=== PATIENT | male | born 1935 | race Caucasian/White ===

== ENCOUNTER 2018-01-05 12:32 | Emergency (ER) | payer OTHER ==
[~2018-01-05] VITALS: Ht 180.3 cm; Wt 113.4 kg
[~2018-01-05 12:32] MED LIST: CODACE30 PO; LISINOPRIL PO; LOVASTATIN PO; NAPR500 PO; NEBI5 PO; TRIHYD5075 PO
== END 2018-01-05 14:49 | disposition home or self-care (01) ==
LOC: ER 12:32
DX: R20.2 Paresthesia of skin (principal); I10 Essential (primary) hypertension; Z79.899 Other long term (current) drug therapy
CPT/HCPCS: 99281

== ENCOUNTER → 2018-02-28 | Outpatient (CLI) | payer OTHER | END | disposition home or self-care (01) | LOC: LAB SHORT 08:07 → PLD 08:07 | DX: D22.39 Melanocytic nevi of other parts of face (principal); L81.4 Other melanin hyperpigmentation; L57.8 Other skin changes due to chronic exposure to nonionizing radiation | CPT/HCPCS: 88305; 88312 ==

== ENCOUNTER 2018-12-22 10:22 | Emergency (ER) | payer OTHER ==
[~2018-12-22] VITALS: Ht 180.3 cm; Wt 99.8 kg
== END 2018-12-22 11:47 | disposition home or self-care (01) ==
LOC: ER 10:22
DX: S60.211A Contusion of right wrist, initial encounter (principal); M19.90 Unspecified osteoarthritis, unspecified site; I10 Essential (primary) hypertension; Z79.899 Other long term (current) drug therapy; W01.0XXA Fall on same level from slipping, tripping and stumbling without subsequent striking against object, initial encounter
CPT/HCPCS: 29125; 73110; 99283-25

== ENCOUNTER → 2019-06-03 | Outpatient (CLI) | payer OTHER ==
[2019-06-03 13:19] LABS: BASOPHILS ABSOLUTE AUTO 0.07 K/mm3 (0.00-0.23); BASOPHILS PERCENT AUTO 1 % (0-2); EOSINOPHILS ABSOLUTE AUTO 0.13 K/mm3 (0.00-0.68); EOSINOPHILS PERCENT AUTO 2 % (0-6); Hematocrit 47.3 % (37.0-53.0); Hemoglobin 15.7 g/dL (13.5-17.5); IMMATURE GRAN ABSOLUTE AUTO 0.02 K/mm3 (0.00-0.10); IMMATURE GRAN PERCENT AUTO 0 % (0-1); LYMPHOCYTES ABSOLUTE AUTO 1.49 K/mm3 (0.84-5.20); LYMPHOCYTES PERCENT AUTO 20 % (21-46); MONOCYTES PERCENT AUTO 8 % (4-13); Mean Corpuscular HGB 28.3 pg (26.0-34.0); Mean Corpuscular HGB Conc 33.2 g/dL (31.5-36.5); Mean Corpuscular Volume 85 fL (80-100); NEUTROPHILS ABSOLUTE AUTO 5.14 K/mm3 (1.96-9.15); NEUTROPHILS PERCENT AUTO 69 % (41-73); Platelet Count 223 K/mm3 (150-400); RDW Coefficient Variation 13.2 % (11.7-14.2); RDW Standard Deviation 40.7 fL (35.1-46.3); Red Blood Cell Count 5.55 M/mm3 (4.30-5.90); White Blood Cell Count 7.45 K/mm3 (4.00-11.30)
[2019-06-03 13:32] LABS: Alanine Aminotransfer (ALT/SGP 21 U/L (12-78); Albumin, Blood 3.8 g/dL (3.4-5.0); Albumin/Globulin Ratio 1.1 (0.8-1.8); Alk Phos 103 U/L (40-126); Anion Gap 6 mmol/L (6-16); Aspartate Aminotrans (AST/SGOT 24 U/L (12-37); Bilirubin, Total 0.5 mg/dL (0.1-1.0); Blood Urea Nitrogen 16 mg/dL (8-24); Bun/Creatinine Ratio 14.2 (12.0-20.0); CO2, Blood 31 mmol/L (21-32); Calcium, Blood 8.8 mg/dL (8.5-10.1); Chloride, Blood 104 mmol/L (98-108); Creatinine, Blood 1.13 mg/dL (0.60-1.20); Globulin, Blood 3.5 g/dL (2.2-4.0); Glomerular Filtration Rate >60 (60-); Glucose, Blood 97 mg/dL (70-99); Potassium, Blood 3.7 mmol/L (3.5-5.5); Sodium, Blood 141 mmol/L (136-145); Total Protein, Blood 7.3 g/dL (6.4-8.2)
== END | disposition home or self-care (01) ==
LOC: LAB EV 13:14 → LAB SHORT 13:14
PROVIDERS: Physician Assistant
DX: R10.9 Unspecified abdominal pain (principal)
CPT/HCPCS: 80053; 83690; 85025; 85379

== ENCOUNTER 2021-05-24 07:26 | Day surgery (SDC) | payer OTHER ==
[~2021-05-24] VITALS: Ht 177.8 cm; Wt 100.2 kg
[~2021-05-24 07:26] MED LIST changes: +AMLO10; +HYDCHL25; +METO100ER; +NEBI5; +TAMS.4ER; +ZESTRIL40 M1
== END 2021-05-24 09:16 | disposition home or self-care (01) ==
LOC: ORSCSDS 07:26
PROVIDERS: Orthopaedic Surgery
PROC: 01N50ZZ Release Median Nerve, Open Approach (ICD-10-PCS; principal; 2021-05-24 08:30)
DX: G56.01 Carpal tunnel syndrome, right upper limb (principal); I10 Essential (primary) hypertension; E66.9 Obesity, unspecified; Z68.31 Body mass index [BMI] 31.0-31.9, adult; Z79.899 Other long term (current) drug therapy
CPT/HCPCS: J2704; J7120

== ENCOUNTER 2022-06-25 11:15 | Emergency (ER) | payer OTHER ==
[~2022-06-25] VITALS: Ht 180.3 cm; Wt 106.6 kg
== END 2022-06-25 13:37 | disposition home or self-care (01) ==
LOC: ER 11:15
DX: S92.901A Unspecified fracture of right foot, initial encounter for closed fracture (principal); I10 Essential (primary) hypertension; X58.XXXA Exposure to other specified factors, initial encounter
CPT/HCPCS: 73630

== ENCOUNTER → 2022-08-23 | Outpatient (CLI) | payer OTHER ==
[2022-08-23 12:29] LABS: BASOPHILS ABSOLUTE AUTO 0.03 K/mm3 (0.00-0.23); BASOPHILS PERCENT AUTO 1 % (0-2); EOSINOPHILS PERCENT AUTO 2 % (0-6); Hematocrit 40.1 % (37.0-53.0); Hemoglobin 12.9 g/dL (13.5-17.5); IMMATURE GRAN ABSOLUTE AUTO 0.03 K/mm3 (0.00-0.10); IMMATURE GRAN PERCENT AUTO 1 % (0-1); LYMPHOCYTES ABSOLUTE AUTO 1.01 K/mm3 (0.84-5.20); LYMPHOCYTES PERCENT AUTO 16 % (21-46); MONOCYTES ABSOLUTE AUTO 0.56 K/mm3 (0.16-1.47); MONOCYTES PERCENT AUTO 9 % (4-13); Mean Corpuscular HGB 27.5 pg (26.0-34.0); Mean Corpuscular HGB Conc 32.2 g/dL (31.5-36.5); Mean Corpuscular Volume 86 fL (80-100); Mean Platelet Volume 10.2 fL (9.1-12.4); NEUTROPHILS ABSOLUTE AUTO 4.76 K/mm3 (1.96-9.15); NEUTROPHILS PERCENT AUTO 73 % (41-73); Platelet Count 261 K/mm3 (150-400); RDW Coefficient Variation 14.5 % (11.7-14.2); RDW Standard Deviation 44.9 fL (35.1-46.3); Red Blood Cell Count 4.69 M/mm3 (4.30-5.90); White Blood Cell Count 6.49 K/mm3 (4.00-11.30)
[2022-08-23 12:41] LABS: Albumin, Blood 2.6 g/dL (3.4-5.0); Albumin/Globulin Ratio 0.7 (0.8-1.8); Bilirubin, Total 0.4 mg/dL (0.1-1.0); Bun/Creatinine Ratio 12.4 (12.0-20.0); Calcium, Blood 8.8 mg/dL (8.5-10.1); Creatinine, Blood 1.13 mg/dL (0.60-1.20); Globulin, Blood 3.9 g/dL (2.2-4.0); Potassium, Blood 4.1 mmol/L (3.5-5.5); Total Protein, Blood 6.5 g/dL (6.4-8.2)
== END | disposition home or self-care (01) ==
LOC: LAB SHORT 12:25
PROVIDERS: Chiropractor
DX: R60.0 Localized edema (principal); R06.09 Other forms of dyspnea
CPT/HCPCS: 80053; 83880; 84484; 85025

== ENCOUNTER 2022-08-24 13:00 | Inpatient (IN) | payer OTHER ==
[~2022-08-24] VITALS: Ht 180.3 cm; Wt 101.0 kg
[2022-08-24 13:38] LABS: BASOPHILS ABSOLUTE AUTO 0.04 K/mm3 (0.00-0.23); BASOPHILS PERCENT AUTO 1 % (0-2); EOSINOPHILS ABSOLUTE AUTO 0.11 K/mm3 (0.00-0.68); EOSINOPHILS PERCENT AUTO 2 % (0-6); Hematocrit 41.7 % (37.0-53.0); IMMATURE GRAN ABSOLUTE AUTO 0.02 K/mm3 (0.00-0.10); IMMATURE GRAN PERCENT AUTO 0 % (0-1); LYMPHOCYTES ABSOLUTE AUTO 0.94 K/mm3 (0.84-5.20); LYMPHOCYTES PERCENT AUTO 16 % (21-46); MONOCYTES ABSOLUTE AUTO 0.61 K/mm3 (0.16-1.47); MONOCYTES PERCENT AUTO 10 % (4-13); Mean Corpuscular HGB 26.7 pg (26.0-34.0); Mean Corpuscular HGB Conc 31.2 g/dL (31.5-36.5); Mean Corpuscular Volume 86 fL (80-100); Mean Platelet Volume 10.1 fL (9.1-12.4); NEUTROPHILS ABSOLUTE AUTO 4.36 K/mm3 (1.96-9.15); NEUTROPHILS PERCENT AUTO 72 % (41-73); Platelet Count 335 K/mm3 (150-400); RDW Coefficient Variation 14.2 % (11.7-14.2); RDW Standard Deviation 44.8 fL (35.1-46.3); Red Blood Cell Count 4.86 M/mm3 (4.30-5.90); White Blood Cell Count 6.08 K/mm3 (4.00-11.30)
[2022-08-24 14:03] LABS: Albumin, Blood 2.7 g/dL (3.4-5.0); Albumin/Globulin Ratio 0.7 (0.8-1.8); Bilirubin, Total 0.7 mg/dL (0.1-1.0); Bun/Creatinine Ratio 14.7 (12.0-20.0); Calcium, Blood 9.1 mg/dL (8.5-10.1); Creatinine, Blood 1.16 mg/dL (0.60-1.20); Globulin, Blood 3.9 g/dL (2.2-4.0); Potassium, Blood 3.9 mmol/L (3.5-5.5); Total Protein, Blood 6.6 g/dL (6.4-8.2)
--- NOTE | 2022-08-24 16:55 | NUR ---
SHIFT SUMMARY PATIENT IS A RECENT DIRECT ADMIT FROM [facility]. PATIENT IS ALERT AND ORIENTED. PATIENT IS IND IN ROOM. PATIENT HAS BEEN ADMITTED FOR A NEW DIAGNOSIS OF ACUTE CHF. PATIENT HAS PLUS 2 EDEMA IN LOWER EXTREMITIES. PATIENT IS RECEIVING LASIX TO GET FLUIDS OFF. PATIENT HAD NOT COMPLAINED OF PAIN, NAUSEA, SOB OR VOMITTING THIS SHIFT. BED IN LOCKED AND LOWEST POSITION. CALL LIGHT IN PLACE. WILL MONITOR UNTIL SHIFT CHANGE.
--- NOTE | 2022-08-25 03:03 | NUR ---
Patient resting in bed, no significant events overnight.
[2022-08-25 05:07] LABS: BASOPHILS ABSOLUTE AUTO 0.04 K/mm3 (0.00-0.23); BASOPHILS PERCENT AUTO 1 % (0-2); EOSINOPHILS ABSOLUTE AUTO 0.13 K/mm3 (0.00-0.68); EOSINOPHILS PERCENT AUTO 3 % (0-6); Hematocrit 37.9 % (37.0-53.0); Hemoglobin 11.8 g/dL (13.5-17.5); IMMATURE GRAN ABSOLUTE AUTO 0.02 K/mm3 (0.00-0.10); IMMATURE GRAN PERCENT AUTO 0 % (0-1); LYMPHOCYTES ABSOLUTE AUTO 0.94 K/mm3 (0.84-5.20); LYMPHOCYTES PERCENT AUTO 18 % (21-46); MONOCYTES ABSOLUTE AUTO 0.51 K/mm3 (0.16-1.47); MONOCYTES PERCENT AUTO 10 % (4-13); Mean Corpuscular HGB 26.6 pg (26.0-34.0); Mean Corpuscular HGB Conc 31.1 g/dL (31.5-36.5); Mean Corpuscular Volume 86 fL (80-100); Mean Platelet Volume 10.5 fL (9.1-12.4); NEUTROPHILS ABSOLUTE AUTO 3.46 K/mm3 (1.96-9.15); NEUTROPHILS PERCENT AUTO 68 % (41-73); Platelet Count 351 K/mm3 (150-400); RDW Coefficient Variation 14.3 % (11.7-14.2); RDW Standard Deviation 44.6 fL (35.1-46.3); Red Blood Cell Count 4.43 M/mm3 (4.30-5.90)
[2022-08-25 05:47] LABS: Alanine Aminotransfer (ALT/SGP 20 U/L (12-78); Albumin, Blood 2.3 g/dL (3.4-5.0); Albumin/Globulin Ratio 0.7 (0.8-1.8); Alk Phos 75 U/L (50-136); Anion Gap 2 mmol/L (6-16); Aspartate Aminotrans (AST/SGOT 12 U/L (12-37); Bilirubin, Total 0.4 mg/dL (0.1-1.0); Blood Urea Nitrogen 18 mg/dL (8-24); Bun/Creatinine Ratio 16.2 (12.0-20.0); CHOL/HDL RATIO 3.6; CO2, Blood 30 mmol/L (21-32); Calcium, Blood 8.6 mg/dL (8.5-10.1); Chloride, Blood 108 mmol/L (98-108); Cholesterol 131 mg/dL (50-200); Creatinine, Blood 1.11 mg/dL (0.60-1.20); Globulin, Blood 3.4 g/dL (2.2-4.0); Glomerular Filtration Rate 64 (60-); Glucose, Blood 108 mg/dL (70-99); HDL Cholesterol 36 mg/dL (>39); LDL/HDL RATIO 2.2; Low Density Lipoprotein Chol 79 mg/dL (0-110); Potassium, Blood 3.6 mmol/L (3.5-5.5); Sodium, Blood 140 mmol/L (136-145); Total Protein, Blood 5.7 g/dL (6.4-8.2); Triglycerides 78 mg/dL (30-160); Very Low Density Lipoprot Chol 15 mg/dL (6-32)
--- NOTE | 2022-08-25 18:08 | NUR ---
SHIFT SUMMARY: HR INTERMITTENTLY CLIMBS TO 130'S, BUT RETURNS TO 90-LOW 100'S. CARDIAC ECHO COMPLETED. VERBALLY EDUCATED PATIENT ABOUT CHF AND AFIB, LOW SALT DIET, CAUSES OF EDEMA, AND MANAGING HF AND AFIB GOING FORWARD. HE IS QUITE STUBBORN. 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 WILL NEED LOTS OF FOLLOW UP EDUCATION AND REINFORCEMENT. WEARING DANIELLE HOSE, DOESN'T LIKE THEM. ON ROOM AIR, HAVING ROJAS, BUT STATES HE FEELS HIS BREATHING IS BETTER. EDUCATED HIM ABOUT USING URINAL FOR ACCURATE I&O AND FLUID RESTRICTION, VERBALIZED UNDERSTANDING. TOLERATING PO INTAKE. DENIED PAIN. SON IS ON HIS WAY FROM [place].
[2022-08-26 04:59] LABS: BASOPHILS ABSOLUTE AUTO 0.05 K/mm3 (0.00-0.23); BASOPHILS PERCENT AUTO 1 % (0-2); EOSINOPHILS ABSOLUTE AUTO 0.12 K/mm3 (0.00-0.68); EOSINOPHILS PERCENT AUTO 2 % (0-6); Hematocrit 40.9 % (37.0-53.0); Hemoglobin 12.9 g/dL (13.5-17.5); IMMATURE GRAN ABSOLUTE AUTO 0.01 K/mm3 (0.00-0.10); IMMATURE GRAN PERCENT AUTO 0 % (0-1); LYMPHOCYTES ABSOLUTE AUTO 0.89 K/mm3 (0.84-5.20); LYMPHOCYTES PERCENT AUTO 17 % (21-46); MONOCYTES ABSOLUTE AUTO 0.61 K/mm3 (0.16-1.47); MONOCYTES PERCENT AUTO 12 % (4-13); Mean Corpuscular HGB 26.8 pg (26.0-34.0); Mean Corpuscular HGB Conc 31.5 g/dL (31.5-36.5); Mean Corpuscular Volume 85 fL (80-100); Mean Platelet Volume 10.1 fL (9.1-12.4); NEUTROPHILS ABSOLUTE AUTO 3.55 K/mm3 (1.96-9.15); NEUTROPHILS PERCENT AUTO 68 % (41-73); Platelet Count 376 K/mm3 (150-400); Red Blood Cell Count 4.81 M/mm3 (4.30-5.90); White Blood Cell Count 5.23 K/mm3 (4.00-11.30)
[2022-08-26 05:29] LABS: Bun/Creatinine Ratio 16.2 (12.0-20.0); Calcium, Blood 8.7 mg/dL (8.5-10.1); Creatinine, Blood 1.05 mg/dL (0.60-1.20); Potassium, Blood 3.5 mmol/L (3.5-5.5)
--- NOTE | 2022-08-26 06:44 | NUR ---
ON TELE WITH RECENT DX OF A FIB, INCREASED TACHYPNEA INTO 120-130S WITH ACTIVITY. INDEPENDENT WITH BATHROOM PRIVELAGES, USING URINAL IN BATHROOM. 1450 MLS VOIDED DURING SHIFT. NO COMPLAINTS OF PAIN. A&O, PLEASANT, CALLS APPROPRIATELY. UNDERSTANDS AND AGREES WITH PLAN OF CARE. EDEMA STILL PRESENT BLE.
--- NOTE | 2022-08-26 15:16 | NUR ---
SHIFT SUMMARY PT AWAKE AT START OF SHIFT, RESTING QUIETLY WATCHING TV. NO C/O. PT ADMITTED FOR NEW ONSET A-FIB AND CHF WITH LLE EDEMA; RESOLVING WITH DIURETICS. PT ON F/R AND DAILY WT. MEDICATIONS ADJUSTED BY DR MORATAYA; GIVEN PER EMAR. SWELLING TO BLE'S DECREASING; SKIN STARTING TO SHOW WRINKLES. FAMILY IN TO VISIT THIS AFTERNOON. DR MORATAYA ALSO IN TO SEE PT AND DISCUSS PLAN OF CARE. PT TO STAY ONE MORE NIGHT AND POSSIBLE D/C TO HOME TOMORROW. PT UP TO SHOWER PRIOR TO VISITORS COMING IN. RESTING QUIETLY IN BED AT THIS TIME. NO C/O. CALL LT IN REACH.
--- NOTE | 2022-08-27 04:42 | NUR ---
NO EVENTS DURING SHIFT. INDEPENDENT, AOX4, VOIDING REGULARLY AND ADEQUATELY. MAINTAINS 1.5 L FLUID RESTRICTION. ON TELE, NO UNEXPECTED HEART ACTIVITY NOTED. PER REPORT DISCHARGE LIKELY TODAY. CALLS APPROPRIATELY, TOLERATES CARES, MEDS. PLEASANT AND COOPERATIVE.
[2022-08-27 04:49] LABS: BASOPHILS ABSOLUTE AUTO 0.05 K/mm3 (0.00-0.23); BASOPHILS PERCENT AUTO 1 % (0-2); EOSINOPHILS ABSOLUTE AUTO 0.14 K/mm3 (0.00-0.68); EOSINOPHILS PERCENT AUTO 3 % (0-6); Hematocrit 40.2 % (37.0-53.0); Hemoglobin 12.9 g/dL (13.5-17.5); IMMATURE GRAN ABSOLUTE AUTO 0.01 K/mm3 (0.00-0.10); IMMATURE GRAN PERCENT AUTO 0 % (0-1); LYMPHOCYTES ABSOLUTE AUTO 1.01 K/mm3 (0.84-5.20); LYMPHOCYTES PERCENT AUTO 19 % (21-46); MONOCYTES ABSOLUTE AUTO 0.58 K/mm3 (0.16-1.47); MONOCYTES PERCENT AUTO 11 % (4-13); Mean Corpuscular HGB 27.2 pg (26.0-34.0); Mean Corpuscular HGB Conc 32.1 g/dL (31.5-36.5); Mean Corpuscular Volume 85 fL (80-100); Mean Platelet Volume 9.8 fL (9.1-12.4); NEUTROPHILS ABSOLUTE AUTO 3.56 K/mm3 (1.96-9.15); NEUTROPHILS PERCENT AUTO 67 % (41-73); Platelet Count 398 K/mm3 (150-400); RDW Standard Deviation 43.6 fL (35.1-46.3); Red Blood Cell Count 4.74 M/mm3 (4.30-5.90); White Blood Cell Count 5.35 K/mm3 (4.00-11.30)
[2022-08-27 05:07] LABS: Bun/Creatinine Ratio 16.2 (12.0-20.0); Calcium, Blood 8.7 mg/dL (8.5-10.1); Creatinine, Blood 1.05 mg/dL (0.60-1.20); Potassium, Blood 3.6 mmol/L (3.5-5.5)
--- NOTE | 2022-08-27 13:13 | NUR ---
SHIFT SUMMARY PT AWAKE AT START OF SHIFT, SITTING UP IN BED WATCHING TV. NO C/O. PT READY TO GO HOME TODAY. PT WITH QUESTIONS R/T F/R AND SALT INTAKE, LATER DISCUSSED WITH DR MORATAYA WHEN HE CAME IN TO SEE PT. DISCHARGE MEDICATIONS ALSO DISCUSSED WITH PT WELL F/U OUTPT LABS AND DR'S VISITS. PT VERBALIZED UNDERSTANDING. INDEPENDENT IN AND TO BTHRM. CALL LT IN REACH.
[2022-08-27] MEDS ORDERED: FURO40 PO (14:28)
[2022-08-27] MEDS ORDERED: ELIQUIS5 M2 PO (14:29)
[2022-08-27] MEDS ORDERED: ALDACTONE25 MG PO (14:30)
[2022-08-27] MEDS ORDERED: FLOMAX0.4 MG (14:30)
--- NOTE | 2022-08-27 15:34 | NUR ---
DISCHARGE INSTRUCTIONS REVIEWED WITH PT AND FAMILY. PT VERBALIZED UNDERSTANDING R/T F/U LABS AND APPOINTMENT WELL F/R AN WT GAIN. MEDS FAXED TO [facility] PER PT REQUEST. PT ASSISTED OUT TO FAMILY CAR VIA W/C WITH FAMILY AT SIDE. PT AND FAMILY TOOK ALL BELONGINGS.
== END 2022-08-27 15:05 | disposition home or self-care (01) | DRG 291 ==
LOC: ER 13:00 → MEDS 13:01
PROVIDERS: Physician Assistant; ADMIT Internal Medicine
DX: I13.0 Hypertensive heart and chronic kidney disease with heart failure and stage 1 through stage 4 chronic kidney disease, or unspecified chronic kidney disease (principal); I50.31 Acute diastolic (congestive) heart failure; I48.92 Unspecified atrial flutter; Z28.21 Immunization not carried out because of patient refusal; N18.2 Chronic kidney disease, stage 2 (mild); N40.0 Benign prostatic hyperplasia without lower urinary tract symptoms; I48.91 Unspecified atrial fibrillation; I65.29 Occlusion and stenosis of unspecified carotid artery; J44.9 Chronic obstructive pulmonary disease, unspecified; E78.5 Hyperlipidemia, unspecified; H35.30 Unspecified macular degeneration; Z98.890 Other specified postprocedural states; Z79.899 Other long term (current) drug therapy
CPT/HCPCS: 36415; 71046; 80048; 80053; 80061; 83735; 83880; 84443; 84484; 85025; 93005; 93010; 93306; 96372; 96374; 96376; 99285-25; A9270; G0378; J1650; J1940

== ENCOUNTER → 2023-02-16 | Outpatient (CLI) | payer OTHER ==
[~2023-02-16] MED LIST changes: +ALDACTONE25 MG PO; +ELIQUIS5 M2 PO; +FURO40 PO; -METO100ER; +METO100ER PO; +TAMS.4ER PO; -ZESTRIL40 M1; +ZESTRIL40 M1 PO
[2023-02-16 17:05] LABS: Source, Urine Clean Catch
[2023-02-16 18:03] LABS: Appearance, Urine Clear (Clear); Bilirubin, Urine Neg (Neg); Blood, Urine Neg (Neg); Color, Urine Yellow (P-Yellow); Glucose Qualitative, Urine Neg (Neg); Ketones, Urine Neg (Neg); Leukocyte Esterase, Urine 2+ (Neg); Nitrite, Urine Neg (Neg); Protein, Urine 3+ (Neg); Urobilinogen, Urine NORM (Normal)
[2023-02-16 18:44] LABS: Bacteria Few /hpf; Red Blood Cells, Urine 0-2 /hpf (0-2); Squamous Epithelial Cells Not Seen /hpf (Few)
== END | disposition home or self-care (01) ==
LOC: LAB SHORT 17:03 → LAB 17:03
PROVIDERS: Hospitalist
DX: N39.0 Urinary tract infection, site not specified (principal)
CPT/HCPCS: 81001; 87086

== ENCOUNTER 2024-06-03 11:17 | Emergency (ER) | payer OTHER ==
[~2024-06-03] VITALS: Ht 177.8 cm; Wt 90.7 kg
[2024-06-03 12:24] LABS: BASOPHILS ABSOLUTE AUTO 0.07 K/mm3 (0.00-0.23); BASOPHILS PERCENT AUTO 1 % (0-2); EOSINOPHILS PERCENT AUTO 3 % (0-6); Hematocrit 44.3 % (37.0-53.0); Hemoglobin 14.4 g/dL (13.5-17.5); IMMATURE GRAN ABSOLUTE AUTO 0.01 K/mm3 (0.00-0.10); IMMATURE GRAN PERCENT AUTO 0 % (0-1); LYMPHOCYTES ABSOLUTE AUTO 1.54 K/mm3 (0.84-5.20); LYMPHOCYTES PERCENT AUTO 22 % (21-46); MONOCYTES ABSOLUTE AUTO 0.55 K/mm3 (0.16-1.47); MONOCYTES PERCENT AUTO 8 % (4-13); Mean Corpuscular HGB Conc 32.5 g/dL (31.5-36.5); Mean Corpuscular Volume 86 fL (80-100); Mean Platelet Volume 10.5 fL (9.1-12.4); NEUTROPHILS ABSOLUTE AUTO 4.77 K/mm3 (1.96-9.15); NEUTROPHILS PERCENT AUTO 67 % (41-73); Platelet Count 175 K/mm3 (150-400); RDW Coefficient Variation 13.9 % (11.7-14.2); RDW Standard Deviation 43.1 fL (35.1-46.3); Red Blood Cell Count 5.15 M/mm3 (4.30-5.90); White Blood Cell Count 7.14 K/mm3 (4.00-11.30)
[2024-06-03 12:32] LABS: Source, Urine Clean Catch
[2024-06-03 12:34] LABS: Appearance, Urine Clear (Clear); Bilirubin, Urine Neg (Neg); Blood, Urine 3+ (Neg); Color, Urine Yellow (P-Yellow); Glucose Qualitative, Urine Neg (Neg); Ketones, Urine Neg (Neg); Leukocyte Esterase, Urine 1+ (Neg); Nitrite, Urine Neg (Neg); Protein, Urine 4+ (Neg); Urobilinogen, Urine NORM (Normal); pH, Urine 6.5 (5.0-8.0)
[2024-06-03 12:42] LABS: Albumin, Blood 3.2 g/dL (3.4-5.0); Bilirubin, Total 1.4 mg/dL (0.1-1.0); Calcium, Blood 8.8 mg/dL (8.5-10.1); Creatinine, Blood 1.33 mg/dL (0.60-1.20); Globulin, Blood 3.1 g/dL (2.2-4.0); Potassium, Blood 3.2 mmol/L (3.5-5.5); Total Protein, Blood 6.3 g/dL (6.4-8.2)
[2024-06-03 13:15] LABS: Bacteria Rare /hpf; Red Blood Cells, Urine 0-2 /hpf (0-2); Squamous Epithelial Cells Not Seen /hpf (Few)
[2024-06-03] MEDS ORDERED: Labetalol HCL 5 MG/ML 4ML Injection (Single Dose) IV ONE (14:35)
[2024-06-03] MEDS ORDERED: HydrALAZINE HCl 20 MG / ML 1ML Vial IV ONE (16:50)
[2024-06-03 17:30] VITALS: BP 179/62
[2024-06-03] MEDS ORDERED: Cephalexin Monohydrate 500 MG Cap PO ONE (17:40)
[2024-06-03] MEDS ORDERED: CEPH500 PO (17:44)
== END 2024-06-03 17:47 | disposition home or self-care (01) ==
LOC: ER 11:17
PROVIDERS: Physician Assistant
DX: I10 Essential (primary) hypertension (principal); N39.0 Urinary tract infection, site not specified; I12.9 Hypertensive chronic kidney disease with stage 1 through stage 4 chronic kidney disease, or unspecified chronic kidney disease; N18.2 Chronic kidney disease, stage 2 (mild); N40.0 Benign prostatic hyperplasia without lower urinary tract symptoms; Z79.01 Long term (current) use of anticoagulants; Z79.899 Other long term (current) drug therapy
CPT/HCPCS: 80053; 81001; 84484; 85025; 87086; 93005; 93010; 96374; 96375; 99285-25; A9270; J0360

== ENCOUNTER 2024-07-16 15:37 | Emergency (ER) | payer OTHER ==
[~2024-07-16] VITALS: Ht 177.8 cm; Wt 90.7 kg
[~2024-07-16 15:37] MED LIST changes: +CEPH500 PO
[2024-07-16] MEDS ORDERED: OLMESARTAN MEDO40 MG PO (15:48)
[2024-07-16] MEDS ORDERED: ATORVASTATIN CA20 MG PO (15:48)
[2024-07-16] MEDS ORDERED: Aspir 8181 MG PO (15:49)
[2024-07-16 17:12] VITALS: BP 190/97
== END 2024-07-16 17:19 | disposition home or self-care (01) ==
LOC: ER 15:37
DX: S51.812A Laceration without foreign body of left forearm, initial encounter (principal); S09.90XA Unspecified injury of head, initial encounter; I13.0 Hypertensive heart and chronic kidney disease with heart failure and stage 1 through stage 4 chronic kidney disease, or unspecified chronic kidney disease; I50.9 Heart failure, unspecified; N18.2 Chronic kidney disease, stage 2 (mild); E78.5 Hyperlipidemia, unspecified; N40.0 Benign prostatic hyperplasia without lower urinary tract symptoms; Z86.73 Personal history of transient ischemic attack (TIA), and cerebral infarction without residual deficits; Z79.82 Long term (current) use of aspirin; Z79.899 Other long term (current) drug therapy; W01.0XXA Fall on same level from slipping, tripping and stumbling without subsequent striking against object, initial encounter
CPT/HCPCS: 12002; 70450; 73090; 73120; 99284-25

== ENCOUNTER 2024-07-19 08:53 | Emergency (ER) | payer OTHER ==
[~2024-07-19] VITALS: Ht 180.3 cm; Wt 90.7 kg
[~2024-07-19 08:53] MED LIST changes: +ATORVASTATIN CA20 MG PO; +Aspir 8181 MG PO; +OLMESARTAN MEDO40 MG PO
[2024-07-19 09:34] VITALS: BP 171/75
== END 2024-07-19 10:20 | disposition home or self-care (01) ==
LOC: ER 08:53
DX: S51.812D Laceration without foreign body of left forearm, subsequent encounter (principal); I12.9 Hypertensive chronic kidney disease with stage 1 through stage 4 chronic kidney disease, or unspecified chronic kidney disease; N18.2 Chronic kidney disease, stage 2 (mild); E78.5 Hyperlipidemia, unspecified; W19.XXXD Unspecified fall, subsequent encounter; Z48.01 Encounter for change or removal of surgical wound dressing; Z86.73 Personal history of transient ischemic attack (TIA), and cerebral infarction without residual deficits; Z79.82 Long term (current) use of aspirin; Z79.899 Other long term (current) drug therapy
CPT/HCPCS: 99282

== ENCOUNTER 2024-07-24 08:43 | Emergency (ER) | payer OTHER ==
[~2024-07-24] VITALS: Ht 180.3 cm; Wt 90.7 kg
[2024-07-24 09:05] VITALS: BP 186/92
[2024-07-24] MEDS ORDERED: CEPH500 PO (09:30)
== END 2024-07-24 09:45 | disposition home or self-care (01) ==
LOC: ER 08:43
DX: S51.812D Laceration without foreign body of left forearm, subsequent encounter (principal); X58.XXXD Exposure to other specified factors, subsequent encounter; Z59.89 Other problems related to housing and economic circumstances; I10 Essential (primary) hypertension; Z86.73 Personal history of transient ischemic attack (TIA), and cerebral infarction without residual deficits
CPT/HCPCS: 99281

== ENCOUNTER 2024-08-20 13:26 | Emergency (ER) | payer OTHER ==
[~2024-08-20] VITALS: Ht 177.8 cm; Wt 90.7 kg
[2024-08-20 15:04] LABS: BASOPHILS ABSOLUTE AUTO 0.05 K/mm3 (0.00-0.23); BASOPHILS PERCENT AUTO 1 % (0-2); EOSINOPHILS ABSOLUTE AUTO 0.13 K/mm3 (0.00-0.68); EOSINOPHILS PERCENT AUTO 2 % (0-6); Hematocrit 39.8 % (37.0-53.0); Hemoglobin 13.2 g/dL (13.5-17.5); IMMATURE GRAN ABSOLUTE AUTO 0.01 K/mm3 (0.00-0.10); IMMATURE GRAN PERCENT AUTO 0 % (0-1); LYMPHOCYTES ABSOLUTE AUTO 1.44 K/mm3 (0.84-5.20); LYMPHOCYTES PERCENT AUTO 20 % (21-46); MONOCYTES PERCENT AUTO 7 % (4-13); Mean Corpuscular HGB Conc 33.2 g/dL (31.5-36.5); Mean Corpuscular Volume 84 fL (80-100); Mean Platelet Volume 10.6 fL (9.1-12.4); NEUTROPHILS ABSOLUTE AUTO 5.06 K/mm3 (1.96-9.15); NEUTROPHILS PERCENT AUTO 70 % (41-73); Platelet Count 174 K/mm3 (150-400); RDW Coefficient Variation 14.1 % (11.7-14.2); RDW Standard Deviation 43.7 fL (35.1-46.3); Red Blood Cell Count 4.72 M/mm3 (4.30-5.90); White Blood Cell Count 7.19 K/mm3 (4.00-11.30)
[2024-08-20 15:43] LABS: Albumin, Blood 3.2 g/dL (3.4-5.0); Albumin/Globulin Ratio 1.1 (0.8-1.8); Bilirubin, Total 0.7 mg/dL (0.1-1.0); Bun/Creatinine Ratio 15.8 (12.0-20.0); Calcium, Blood 8.9 mg/dL (8.5-10.1); Creatinine, Blood 1.39 mg/dL (0.60-1.20); Globulin, Blood 2.9 g/dL (2.2-4.0); Potassium, Blood 3.7 mmol/L (3.5-5.5); Total Protein, Blood 6.1 g/dL (6.4-8.2)
[2024-08-20 16:44] VITALS: BP 231/116
[2024-08-21] MEDS ORDERED: CATAPRES0.1 MG PO (11:06)
[2024-08-21] MEDS ORDERED: CLOBETASOL EMOL15 G1 (11:06)
[2024-08-21] MEDS ORDERED: AMLODIPINE BESYL5 MG PO (11:07)
== END 2024-08-20 17:02 | disposition home or self-care (01) ==
LOC: ER 13:26
PROVIDERS: Emergency Medicine
DX: I21.4 Non-ST elevation (NSTEMI) myocardial infarction (principal); I13.0 Hypertensive heart and chronic kidney disease with heart failure and stage 1 through stage 4 chronic kidney disease, or unspecified chronic kidney disease; N18.2 Chronic kidney disease, stage 2 (mild); I50.30 Unspecified diastolic (congestive) heart failure; E78.5 Hyperlipidemia, unspecified; I48.91 Unspecified atrial fibrillation; Z79.899 Other long term (current) drug therapy; Z79.82 Long term (current) use of aspirin
CPT/HCPCS: 71046; 80053; 83880; 84484; 85025; 93005; 93010; 99285-25

== ENCOUNTER 2024-08-21 08:29 | Inpatient (IN) | payer OTHER ==
[2024-08-21] VITALS (47 sets, daily range): BP systolic 134–233; BP diastolic 69–182
[~2024-08-21] VITALS: Ht 180.3 cm; Wt 93.0 kg
[2024-08-21 09:07] LABS: BASOPHILS ABSOLUTE AUTO 0.04 K/mm3 (0.00-0.23); BASOPHILS PERCENT AUTO 1 % (0-2); EOSINOPHILS PERCENT AUTO 1 % (0-6); Hematocrit 40.4 % (37.0-53.0); Hemoglobin 13.3 g/dL (13.5-17.5); IMMATURE GRAN ABSOLUTE AUTO 0.01 K/mm3 (0.00-0.10); IMMATURE GRAN PERCENT AUTO 0 % (0-1); LYMPHOCYTES ABSOLUTE AUTO 1.23 K/mm3 (0.84-5.20); LYMPHOCYTES PERCENT AUTO 18 % (21-46); MONOCYTES ABSOLUTE AUTO 0.56 K/mm3 (0.16-1.47); MONOCYTES PERCENT AUTO 8 % (4-13); Mean Corpuscular HGB 28.1 pg (26.0-34.0); Mean Corpuscular HGB Conc 32.9 g/dL (31.5-36.5); Mean Corpuscular Volume 85 fL (80-100); Mean Platelet Volume 10.4 fL (9.1-12.4); NEUTROPHILS PERCENT AUTO 72 % (41-73); Platelet Count 176 K/mm3 (150-400); RDW Coefficient Variation 14.1 % (11.7-14.2); RDW Standard Deviation 43.6 fL (35.1-46.3); Red Blood Cell Count 4.74 M/mm3 (4.30-5.90); White Blood Cell Count 6.94 K/mm3 (4.00-11.30)
[2024-08-21 09:20] LABS: Albumin, Blood 3.2 g/dL (3.4-5.0); Bilirubin, Total 1.1 mg/dL (0.1-1.0); Bun/Creatinine Ratio 15.4 (12.0-20.0); Calcium, Blood 8.8 mg/dL (8.5-10.1); Creatinine, Blood 1.3 mg/dL (0.60-1.20); Globulin, Blood 3.2 g/dL (2.2-4.0); Potassium, Blood 3.7 mmol/L (3.5-5.5); Total Protein, Blood 6.4 g/dL (6.4-8.2)
[2024-08-21] MEDS ORDERED: Metoprolol Succinate 50 MG TABCR PO SCH (10:35)
[2024-08-21] MEDS ORDERED: Losartan Potassium 50 MG Tab PO ONE (10:35)
[2024-08-21] MEDS ORDERED: FLU VACC TS2024-25(6MOS UP)/PF 45 MCG/0.5 ML SYRINGE IM SCH (10:40)
[2024-08-21] MEDS ORDERED: Nitroglycerin/D5W 250 ML IV SCH (10:45)
[2024-08-21] MEDS ORDERED: CATAPRES0.1 MG PO (11:06)
[2024-08-21] MEDS ORDERED: CLOBETASOL EMOL15 G1 (11:06)
[2024-08-21] MEDS ORDERED: AMLODIPINE BESYL5 MG PO (11:07)
[2024-08-21] MEDS ORDERED: Furosemide 10 MG/ML 4ML Vial IV SCH (14:00)
--- NOTE | 2024-08-21 18:28 | NUR ---
SUMMARY PT ADMITTED TO ICU 12 AT 1130 FROM ER. ON NITRO GTT AT 30MCG/MIN, EVENTUALLY TITRATED UP TO 150MCG/MIN, SEE FLOWSHEET. PT IS A/O X4. USING URINAL INDEP. GOT A DOSE OF LASIX. PT HAD A FEW 2.6 SEC PAUSES ON THE MONITOR WHILE SLEEPING, ASYMPTOMATIC, AFIB. LET DR. SCHNEIDER KNOW. DR. SUTHERLAND CONSULTED AND SAW PT QUICKLY. PT HAS BEEN UP TO RECLINER CHAIR MOST OF THE EVENING AND HAS NOT HAD ANYMORE PAUSES ON THE MONITOR. NO SIGN OF DISTRESS, ON CELL PHONE.
--- NOTE | 2024-08-21 19:15 | NUR ---
ASSUMED CARE OF PT AT 1900. REPORT RECEIVED AT BEDSIDE. PT PRESENTS IN BEDSIDE RECLINER CHAIR. ALERT AND ORIENTED. PLEASANT AND COOPERATIVE WITH CARE. PARTICIPATES IN BEDSIDE REPORT. PT DOES STATE THAT HE WOULD LIKE TO STAY AND SLEEP THE NIGHT IN THE RECLINER CHAIR. DOES CLAIM THAT HE SLEEPS IN RECLINER AT HOME. WILL REVIEW CHART AND PLAN OF CARE FOR THIS PT.
--- NOTE | 2024-08-21 22:09 | NUR ---
HAVE INCREASED NITRO DRIP TO 160 MCG'S SECONDARY TO PT'S BLOOD PRESSURE INCREASING. WILL MONITOR FOR NEED TO TITRATE UP OR DOWN NEEDED.
[2024-08-21] MEDS ORDERED: Acetaminophen 325 MG TABLET PO PRN (23:15)
[2024-08-21] MEDS ORDERED: HydrALAZINE HCl 20 MG / ML 1ML Vial IV PRN (23:20)
[2024-08-22] VITALS (90 sets, daily range): BP systolic 119–201; BP diastolic 58–147
--- NOTE | 2024-08-22 00:12 | NUR ---
PT ASSISTED BACK TO BED. MEDICATED WITH TYLENOL FOR HEADACHE, AND WITH HYDRALAZINE FOR BP. NITRO CONTINUES AT 180 MCG'S/KG WILL EVALUATE FOR ABILITY TO BEGIN TO TITRATE DOWN NITRO DRIP.
--- NOTE | 2024-08-22 03:11 | NUR ---
PT ASSISTED BACK TO RECLINER CHAIR. STATES HE HAS NOT BEEN ABLE TO SLEEP. STATES THAT HE WANTS TO GO HOME IN THE MORNING. EXPLAINED TO PT THAT WITH THE NITRO DRIP, IT IS NOT WHERE IT CAN BE SAFELY STOPPED TO GO HOME. CURRENTLY RATE IS 180 MCG'S/KG. PT BLOOD PRESSURE IS NOT WHERE IT CAN BE TITRATED LOWER AT THIS TIME.
[2024-08-22 04:19] LABS: BASOPHILS ABSOLUTE AUTO 0.04 K/mm3 (0.00-0.23); BASOPHILS PERCENT AUTO 0 % (0-2); EOSINOPHILS ABSOLUTE AUTO 0.03 K/mm3 (0.00-0.68); EOSINOPHILS PERCENT AUTO 0 % (0-6); Hematocrit 39.5 % (37.0-53.0); Hemoglobin 12.8 g/dL (13.5-17.5); IMMATURE GRAN ABSOLUTE AUTO 0.04 K/mm3 (0.00-0.10); IMMATURE GRAN PERCENT AUTO 0 % (0-1); LYMPHOCYTES ABSOLUTE AUTO 0.76 K/mm3 (0.84-5.20); LYMPHOCYTES PERCENT AUTO 7 % (21-46); MONOCYTES ABSOLUTE AUTO 0.71 K/mm3 (0.16-1.47); MONOCYTES PERCENT AUTO 6 % (4-13); Mean Corpuscular HGB 27.6 pg (26.0-34.0); Mean Corpuscular HGB Conc 32.4 g/dL (31.5-36.5); Mean Corpuscular Volume 85 fL (80-100); Mean Platelet Volume 11.2 fL (9.1-12.4); NEUTROPHILS ABSOLUTE AUTO 9.59 K/mm3 (1.96-9.15); NEUTROPHILS PERCENT AUTO 86 % (41-73); Platelet Count 188 K/mm3 (150-400); RDW Coefficient Variation 14.2 % (11.7-14.2); RDW Standard Deviation 43.8 fL (35.1-46.3); Red Blood Cell Count 4.63 M/mm3 (4.30-5.90); White Blood Cell Count 11.17 K/mm3 (4.00-11.30)
[2024-08-22 04:50] LABS: Bun/Creatinine Ratio 16.3 (12.0-20.0); Calcium, Blood 8.7 mg/dL (8.5-10.1); Creatinine, Blood 1.23 mg/dL (0.60-1.20); Potassium, Blood 2.9 mmol/L (3.5-5.5)
[2024-08-22] MEDS ORDERED: Potassium Chloride 20 MEQ TabCR PO ONE ×2 (05:25→13:35)
--- NOTE | 2024-08-22 05:49 | NUR ---
PT HAS BEEN SOMEWHAT AGITATED THIS SHIFT. STATES THAT HE IS UNABLE TO SLEEP IN THE HOSPITAL AND WANTS TO GO HOME TO SLEEP. TEACHING DONE ON NITRO DRIP AND PURPOSE. HE STATES HE WILL SPEAK TO MD IN MORNING ABOUT GOING HOME. CALL MADE TO DR SIMONS THIS MORNING CONCERNING POTASSIUM LEVEL BEING LOW. ORDER RECEIVED. CONTINUES ON NITRO DRIP AT 180 MCG'S/KG AND FOR THE MOST PART, PT'S BLOOD PRESSURE REMAINS WITH SBP <180. PT MEDICATED WITH TYLENOL FOR COMPLAINT OF HEADACHE WITH NITRO DRIP. THIS WAS AFFECTIVE. WILL CONTINUE TO MONITOR PT, AND WILL REPORT OFF TO ONCOMING RN.
[2024-08-22] MEDS ORDERED: Furosemide 10 MG/ML 4ML Vial IV SCH (09:00)
[2024-08-22] MEDS ORDERED: Aspirin 81 MG TabEC PO SCH (09:00)
[2024-08-22] MEDS ORDERED: Enoxaparin 40 MG/0.4 ML SYR SC SCH (09:00)
[2024-08-22] MEDS ORDERED: Losartan Potassium 50 MG Tab PO SCH (09:00)
[2024-08-22] MEDS ORDERED: Metoprolol Succinate 50 MG TABCR PO SCH (09:00)
[2024-08-22] MEDS ORDERED: Atorvastatin 40 MG Tab PO SCH (09:00)
[2024-08-22] MEDS ORDERED: AmLODIPine Besylate 5 MG Tab PO SCH ×2 (09:00)
--- NOTE | 2024-08-22 11:25 | NUR ---
PT CALLED RN TO BEDSIDE FOR HEADACHE. PT WITNESSED USING URINAL AND HR DECREASED FROM 115 TO 63; BP 147/77. PATIENT SAT BACK IN CHAIR AND HAD EPISODE OF EMESIS. HR JUMPED UP TO 153 DURING EPISODE AND CONTINUED TO HAS HEADACHE LOCATED ON POSTERIOR SIDE OF SKULL. FOLLOWING EPISODE, BP 177/100; HR 107. STILL AFIB. HEADACHE AND NAUSEA SUBSIDED WITHOUT INTERVENTION.
--- NOTE | 2024-08-22 11:31 | NUR ---
NEXT BP CHECK FOLLOWING EMESIS EPISODE, 130/66 (84). PT DENIES PAIN AT THIS TIME.
[2024-08-22] MEDS ORDERED: TAMS.4ER PO (13:00)
[2024-08-22] MEDS ORDERED: Sennosides 8.6 MG Tab PO PRN (14:30)
--- NOTE | 2024-08-22 19:18 | NUR ---
ASSUMED CARE OF PT AT 1900. REPORT RECEIVED AT BEDSIDE. PT WAS SITTING UP IN RECLINER CHAIR. WAS ASLEEP AT TIME OF REPORT. DID ALLOW PT TO REST. IN NO APPARENT DISTRESS AT THIS TIME. NITRO DRIP AT 40 MCG'S/KG. GOAL FOR SBP 140-180. WILL MONITOR FOR ABILITY TO TITRATE NITRO DOWN ABLE. WILL REVIEW CHART AND PLAN OF CARE FOR THIS PT.
[2024-08-22] MEDS ORDERED: Melatonin 3 MG Tab PO PRN (20:15)
[2024-08-23] VITALS (46 sets, daily range): BP systolic 141–194; BP diastolic 63–134
--- NOTE | 2024-08-23 02:55 | NUR ---
HAVE ADMINISTERED 3 MG MELATONIN FOR PT AT BEDTIME. PT HAS BEEN ABLE TO SLEEP MUCH BETTER THIS NIGHT. HAVE BEEN ABLE TO TITRATE NITRO DOWN TO 10 MCG'S/KG. WILL CONSIDER NEXT TITRATION STEP TO PLACE NITRO ON HOLD. PT HAS HAS MILD DISORIENTATION THIS NIGHT. SAW MIRROR IN ROOM, AND BELIEVED THAT HE NEEDED TO "GO INTO THE OTHER ROOM". PT REORIENTS EASILY. PT REMAINS IN RECLINER CHAIR FOR SLEEP. HAVE NOTED THAT PT DOES TURN HIMSELF IN CHAIR. HAS BEEN UP TO BEDSIDE COMMODE SEVERAL TIME TO VOID. NEEDS HELP WITH CORDS, AND IV LINE.
[2024-08-23 03:39] LABS: BASOPHILS ABSOLUTE AUTO 0.04 K/mm3 (0.00-0.23); BASOPHILS PERCENT AUTO 0 % (0-2); EOSINOPHILS ABSOLUTE AUTO 0.07 K/mm3 (0.00-0.68); EOSINOPHILS PERCENT AUTO 1 % (0-6); Hemoglobin 12.7 g/dL (13.5-17.5); IMMATURE GRAN ABSOLUTE AUTO 0.05 K/mm3 (0.00-0.10); IMMATURE GRAN PERCENT AUTO 1 % (0-1); LYMPHOCYTES ABSOLUTE AUTO 1.01 K/mm3 (0.84-5.20); LYMPHOCYTES PERCENT AUTO 10 % (21-46); MONOCYTES ABSOLUTE AUTO 1.05 K/mm3 (0.16-1.47); MONOCYTES PERCENT AUTO 10 % (4-13); Mean Corpuscular HGB 27.7 pg (26.0-34.0); Mean Corpuscular HGB Conc 32.6 g/dL (31.5-36.5); Mean Corpuscular Volume 85 fL (80-100); Mean Platelet Volume 10.5 fL (9.1-12.4); NEUTROPHILS ABSOLUTE AUTO 8.25 K/mm3 (1.96-9.15); NEUTROPHILS PERCENT AUTO 79 % (41-73); Platelet Count 183 K/mm3 (150-400); RDW Coefficient Variation 14.5 % (11.7-14.2); RDW Standard Deviation 44.5 fL (35.1-46.3); Red Blood Cell Count 4.59 M/mm3 (4.30-5.90); White Blood Cell Count 10.47 K/mm3 (4.00-11.30)
[2024-08-23 04:01] LABS: Bun/Creatinine Ratio 16.4 (12.0-20.0); Calcium, Blood 9.1 mg/dL (8.5-10.1); Creatinine, Blood 1.28 mg/dL (0.60-1.20); Potassium, Blood 3.3 mmol/L (3.5-5.5)
[2024-08-23] MEDS ORDERED: Potassium Chloride 20 MEQ TabCR PO ONE (05:00)
--- NOTE | 2024-08-23 06:16 | NUR ---
PT HAS REMAINED IN RECLINER CHAIR THROUGHOUT THE NIGHT. HAS BEEN OFFERED TO BE ASSISTED BACK TO BED WHICH HE STATES HE PREFERS THE RECLINER CHAIR. HAVE TITRATED PT OFF OF NITRO DRIP. PT HAS BEEN ABLE TO SLEEP AFTER RECEIVING MELATONIN AT BEDTIME. WILL CONTINUE TO MONITOR PT, AND WILL REPORT OFF TO ONCOMING RN.
--- NOTE | 2024-08-23 07:51 | NUR ---
ASSUMED CARE OF PATIENT AT APPROXIMATELY 0700. REPORT RECEIVED FROM BRITTNY WHITE. PT AWAKE IN BESIDE RECLINER, INTERACTING WITH STAFF APPROPRIATELY DURING BEDSIDE REPORT. CONTINOUS CARDIAC MONITORING IN PLACE SHOWS AFIB, BP ELEVATED AT 187/85. DENIES CP/SOB. ON RA WITH O2 SATURATION > 92%. PIV TO RFA, SALINE LOCKED. NO ACUTE NEEDS IDENTIFIED AT THIS TIME. SEE SHIFT ASSESSMENT FOR FULL DETAILS.
[2024-08-23] MEDS ORDERED: HydrALAZINE HCl 10 MG Tab PO SCH (09:00)
[2024-08-23] MEDS ORDERED: HYDR10 PO (12:53)
[2024-08-23] MEDS ORDERED: FURO40 PO (12:53)
[2024-08-23] MEDS ORDERED: LOSA50 PO (12:54)
[2024-08-23] MEDS ORDERED: POTCHL20ER PO (12:54)
[2024-08-23] MEDS ORDERED: SENN187 PO (12:55)
--- NOTE | 2024-08-23 13:16 | NUR ---
DISCHARGE DISCHARGE PAPERWORK REVIEWED WITH PT AT BEDSIDE. PIV REMOVED AT 1306. PT ESCORTED VIA WHEELCHAIR TO TRANSPORT WAITING OUTSIDE OF PATIENT ENTRANCE AT 1311.
== END 2024-08-23 13:00 | disposition home or self-care (01) | DRG 281 ==
LOC: ER 08:29 → ICUE 10:35
PROVIDERS: Physician Assistant; ADMIT Family Medicine
DX: I16.1 Hypertensive emergency (principal); I48.20 Chronic atrial fibrillation, unspecified; I21.A1 Myocardial infarction type 2; I50.32 Chronic diastolic (congestive) heart failure; I13.0 Hypertensive heart and chronic kidney disease with heart failure and stage 1 through stage 4 chronic kidney disease, or unspecified chronic kidney disease; N18.30 Chronic kidney disease, stage 3 unspecified; N40.0 Benign prostatic hyperplasia without lower urinary tract symptoms; E78.5 Hyperlipidemia, unspecified; D63.1 Anemia in chronic kidney disease; Z86.73 Personal history of transient ischemic attack (TIA), and cerebral infarction without residual deficits; Z79.899 Other long term (current) drug therapy; Z79.82 Long term (current) use of aspirin; Z98.42 Cataract extraction status, left eye; Z98.41 Cataract extraction status, right eye
CPT/HCPCS: 36415; 80048; 80053; 83690; 83880; 84132; 84484; 85025; 93005; 93010; 93306; 93975; 99285-25; A9270; J0360; J1650; J1940

== ENCOUNTER → 2024-10-23 | Outpatient (CLI) | payer OTHER ==
[~2024-10-23] MED LIST changes: +AMLODIPINE BESYL5 MG PO; +CATAPRES0.1 MG PO; +CLOBETASOL EMOL15 G1; +HYDR10 PO; +LOSA50 PO; +POTCHL20ER PO; +SENN187 PO
[2024-10-23 17:22] LABS: Source, Urine Voided
[2024-10-23 19:52] LABS: Bacteria Rare /hpf; Red Blood Cells, Urine 0-2 /hpf (0-2); Squamous Epithelial Cells Rare /hpf (Few)
== END ==
LOC: LAB 17:17 → LAB SHORT 17:17
PROVIDERS: Hospitalist
DX: R30.0 Dysuria (principal)
CPT/HCPCS: 81015; 87086

== ENCOUNTER 2024-11-10 09:02 | Emergency (ER) | payer OTHER ==
[~2024-11-10] VITALS: Ht 180.3 cm; Wt 90.7 kg
[2024-11-10 09:30] VITALS: BP 152/85
[2024-11-10 10:48] LABS: BASOPHILS ABSOLUTE AUTO 0.05 K/mm3 (0.00-0.23); BASOPHILS PERCENT AUTO 1 % (0-2); EOSINOPHILS ABSOLUTE AUTO 0.09 K/mm3 (0.00-0.68); EOSINOPHILS PERCENT AUTO 1 % (0-6); Hematocrit 43.6 % (37.0-53.0); Hemoglobin 13.9 g/dL (13.5-17.5); IMMATURE GRAN ABSOLUTE AUTO 0.02 K/mm3 (0.00-0.10); IMMATURE GRAN PERCENT AUTO 0 % (0-1); LYMPHOCYTES ABSOLUTE AUTO 1.08 K/mm3 (0.84-5.20); LYMPHOCYTES PERCENT AUTO 16 % (21-46); MONOCYTES ABSOLUTE AUTO 0.44 K/mm3 (0.16-1.47); MONOCYTES PERCENT AUTO 6 % (4-13); Mean Corpuscular HGB 27.5 pg (26.0-34.0); Mean Corpuscular HGB Conc 31.9 g/dL (31.5-36.5); Mean Corpuscular Volume 86 fL (80-100); Mean Platelet Volume 10.2 fL (9.1-12.4); NEUTROPHILS ABSOLUTE AUTO 5.24 K/mm3 (1.96-9.15); NEUTROPHILS PERCENT AUTO 76 % (41-73); Platelet Count 231 K/mm3 (150-400); RDW Coefficient Variation 14.2 % (11.7-14.2); RDW Standard Deviation 45.1 fL (35.1-46.3); Red Blood Cell Count 5.05 M/mm3 (4.30-5.90); White Blood Cell Count 6.92 K/mm3 (4.00-11.30)
[2024-11-10 11:39] LABS: Albumin, Blood 3.2 g/dL (3.4-5.0); Bilirubin, Total 0.9 mg/dL (0.1-1.0); Bun/Creatinine Ratio 18.8 (12.0-20.0); Calcium, Blood 8.5 mg/dL (8.5-10.1); Creatinine, Blood 1.12 mg/dL (0.60-1.20); Globulin, Blood 3.2 g/dL (2.2-4.0); Potassium, Blood 3.7 mmol/L (3.5-5.5); Total Protein, Blood 6.4 g/dL (6.4-8.2)
[2024-11-10] MEDS ORDERED: Magnesium Hydroxide Conc 10 ML UDC PO ONE (11:55)
[2024-11-10] MEDS ORDERED: Polyethylene Glycol 3350 17 gm PO ONE (12:00)
== END 2024-11-10 12:30 | disposition home or self-care (01) ==
LOC: ER 09:02
PROVIDERS: Emergency Medicine
DX: K59.00 Constipation, unspecified (principal); I10 Essential (primary) hypertension
CPT/HCPCS: 74018; 80053; 85025; 99283-25; A9270